=== PATIENT | female | born 2000 | race Hispanic/Latino ===

== ENCOUNTER 2019-09-13 19:31 | Emergency (ER) | payer OTHER ==
[2019-09-13 20:08] LABS: APPEARANCE,URINE Clear (CLEAR); BILIRUBIN,URINE Negative (NEGATIVE); COLOR,URINE Yellow (YELLOW); GLUCOSE, URINE (UA) Negative (NEGATIVE); KETONES,URINE Trace mg/dL (NEGATIVE); LEUKOCYTE ESTERASE ,URINE Small (NEGATIVE); NITRATE,URINE Positive (NEGATIVE); OCCULT BLOOD,URINE Negative (NEGATIVE); PROTEIN,URINE Negative (NEGATIVE)
[2019-09-13 20:12] LABS: HCG,QUAL RESULT POSITIVE (NEGATIVE)
[2019-09-13 20:16] LABS: RBC,URINE 0-1 /HPF (0-1)
[2019-09-13 20:17] LABS: BACTERIA,URINE Moderate /HPF (None Seen)
[2019-09-13 20:19] LABS: SQUAMOUS EPITHELIAL CELL,UR Few /HPF (0-2)
[2019-09-13 20:20] LABS: MUCUS,URINE Few LPF (None Seen)
[2019-09-13 21:04] LABS: BASOPHILS % (AUTO) 0.6 % (0.0-5.0); EOSINOPHILS % (AUTO) 1.5 % (0.0-8.0); HEMATOCRIT 38.9 % (36-48); LYMPHOCYTES % (AUTO) 18.3 % (21.0-51.0); MEAN CORPUSCULAR HGB CONC 33.2 g/dL (32.0-36.0); MEAN CORPUSCULAR VOLUME 87.4 fL (80-100); MONOCYTES % (AUTO) 5.5 % (3.0-13.0); NEUTROPHILS % (AUTO) 73.9 % (40.0-77.0); PLATELET COUNT (AUTO) 357 K/uL (130-400); RED BLOOD CELL COUNT(AUTO) 4.45 MIL/uL (4.00-5.50); RED CELL DISTRIBUTION WIDTH 12.8 % (11.0-15.5); WHITE BLOOD COUNT (AUTO) 11.2 K/uL (4.8-10.8)
[2019-09-13 21:23] LABS: CREATININE 0.6 mg/dL (0.5-1.5); POTASSIUM 3.7 mmol/L (3.5-5.1)
[2019-09-13 21:34] LABS: BILIRUBIN,TOTAL 0.2 mg/dL (0.2-1.0); TOTAL PROTEIN, SERUM 7.7 g/dL (6.0-8.3)
[2019-09-13] MEDS ORDERED: LIDOCAINE HCL-MPF 1% 2ML VIAL ONE (22:08)
[2019-09-13] MEDS ORDERED: CEFTRIAXONE SODIUM 1 GM ONE (22:09)
== END 2019-09-13 22:46 ==
LOC: EDH 19:31
DX: O23.41 Unspecified infection of urinary tract in pregnancy, first trimester (principal); Z3A.01 Less than 8 weeks gestation of pregnancy
CPT/HCPCS: 36415; 76801; 80053; 81001; 81025; 84702; 85025; 87077; 87088; 87186; 96372; 99284; J0696; J3490

== ENCOUNTER 2019-09-14 03:23 | Emergency (ER) | payer OTHER ==
[2019-09-14 04:22] LABS: AMPHET/METH SCREEN,URINE NEGATIVE (NEGATIVE); BARBITURATE SCREEN, URINE NEGATIVE (NEGATIVE); BENZODIAZEPINES SCREEN,URINE POSITIVE (NEGATIVE); CANNABINOID SCREEN,URINE NEGATIVE (NEGATIVE); COCAINE SCREEN,URINE NEGATIVE (NEGATIVE); OPIATE SCREEN,URINE NEGATIVE (NEGATIVE); PHENCYCLIDINE SCREEN,URINE NEGATIVE (NEGATIVE)
== END 2019-09-14 04:47 | disposition home or self-care (01) ==
LOC: EDH 03:23
DX: N39.0 Urinary tract infection, site not specified (principal); F13.10 Sedative, hypnotic or anxiolytic abuse, uncomplicated; Z33.1 Pregnant state, incidental; Z72.0 Tobacco use
CPT/HCPCS: 80305

== ENCOUNTER 2020-02-21 12:54 | Observation (INO) | payer MEDICAID ==
[~2020-02-21] VITALS: Ht 149.9 cm; Wt 47.6 kg
[2020-02-21 13:43] LABS: BILIRUBIN,URINE Negative (NEGATIVE); COLOR,URINE Yellow (YELLOW); GLUCOSE, URINE (UA) Negative (NEGATIVE); KETONES,URINE Negative (NEGATIVE); LEUKOCYTE ESTERASE ,URINE Large (NEGATIVE); NITRATE,URINE Negative (NEGATIVE); OCCULT BLOOD,URINE Large (NEGATIVE); PH,URINE 7.5 (5.0-8.0); PROTEIN,URINE Negative (NEGATIVE)
[2020-02-21 13:48] LABS: APPEARANCE,URINE SLIGHTLY CLOUDY (CLEAR)
[2020-02-21 13:50] LABS: AMPHET/METH SCREEN,URINE NEGATIVE (NEGATIVE); BARBITURATE SCREEN, URINE NEGATIVE (NEGATIVE); BENZODIAZEPINES SCREEN,URINE NEGATIVE (NEGATIVE); CANNABINOID SCREEN,URINE NEGATIVE (NEGATIVE); COCAINE SCREEN,URINE NEGATIVE (NEGATIVE); OPIATE SCREEN,URINE NEGATIVE (NEGATIVE); PHENCYCLIDINE SCREEN,URINE NEGATIVE (NEGATIVE)
[2020-02-21 14:03] LABS: BACTERIA,URINE Few /HPF (None Seen)
== END 2020-02-21 14:20 | disposition home or self-care (01) ==
LOC: EDH 12:54 → LDH 12:55
PROVIDERS: ADMIT Obstetrics & Gynecology; ATTEND Obstetrics & Gynecology
DX: O46.92 Antepartum hemorrhage, unspecified, second trimester (principal); Z3A.27 27 weeks gestation of pregnancy
CPT/HCPCS: 80305; 81001; 87088; 99284; G0378

== ENCOUNTER 2025-02-10 20:29 | Emergency (ER) | payer SELFPAY ==
[~2025-02-10] VITALS: Ht 152.4 cm; Wt 51.3 kg
[2025-02-10 20:52] LABS: APPEARANCE,URINE CLEAR (CLEAR); GLUCOSE, URINE (UA) NEGATIVE (NEGATIVE); LEUKOCYTE ESTERASE ,URINE 75 Leu/uL (NEGATIVE); NITRATE,URINE NEGATIVE (NEGATIVE); OCCULT BLOOD,URINE NEGATIVE (NEGATIVE)
[2025-02-10 20:56] LABS: ADD UA MICROSCOPIC YES
[2025-02-10 20:57] LABS: SQUAMOUS EPITHELIAL CELL,UR RARE /HPF (0-2)
[2025-02-10 21:06] LABS: IMMATURE GRANULOCYTE ABSOLUTE 0.03 K/uL (0-1); NUCLEATED RED BLOOD CELLS 0.0 % (0.0-0.19); PLATELET COUNT (AUTO) 455 K/uL (130-400); RED BLOOD CELL COUNT(AUTO) 4.38 MIL/uL (4.00-5.50); RED CELL DISTRIBUTION WIDTH 12.7 % (11.0-15.5); WHITE BLOOD COUNT (AUTO) 10.8 K/uL (4.8-10.8)
[2025-02-10 21:14] LABS: CREATININE 0.4 mg/dL (0.5-1.0); GLOMERULAR FILTR. RATE CALC 140.0 mL/min (>90); GLUCOSE,RANDOM 97.0 mg/dL (70-105); SODIUM SERUM 139.0 mmol/L (136-145); UREA NITROGEN, BLOOD 8.0 mg/dL (7-18)
[2025-02-10 21:32] VITALS: BP 127/74; PULSE 106; RESP 20; TEMP 98; O2SAT 98
[2025-02-10 21:44] LABS: HCG,QUANTITATIVE 7828.0 mIU/mL (0-5)
--- NOTE | 2025-02-10 22:02 | ERN ---
ED Note History of Present Illness Stated Complaint: C/O POSSIBLE Chief Complaint: Abdominal Pain Time Seen by MD: 20:34 Time Seen by Midlevel: 20:36 Dictation: 24-year-old female with no past medical history coming in with complaints of possible and lower abdominal pain. Patient states she checked at a home test today and was positive so decided to come to the emergency room to make sure. Patient denies any vaginal bleeding vaginal discharge. However is complaining of lower abdominal pain. Denies any fever, nausea or vomiting. Allergies: Coded Allergies: No Known Drug Allergies (Unverified Allergy, Unknown, 09/13/19) Past Medical History Past Medical History: No Pertinent History Surgical History: None LMP: Jan 10, 2025 Review of System Dictation Constitutional: Negative for fever,chills, and weight loss Eyes: Negative for injury, pain,redness, and discharge ENT: Negative for injury,pain or swelling Cardiovascular: Negative for chest pain, palpitations, and edema Respiratory: Negative for shortness of breath, cough, and wheezing, Abdomen/GI: Lower abdominal pain, no nausea, no vomiting,no diarrhea, and no constipation Back: Negative for injury and pain : Negative for injury, bleeding and discharge MS/Extremity: Negative for injury and deformity Skin: Negative for rash, and discoloration Neuro: Negative for headache, weakness, numbness, tingling, and seizure Psych: Negative for suicide ideation, homicidal ideation, and hallucinations Review of Systems: was completed Initial Vital Sign VS Vital Signs Date Time Temp Pulse Resp B/P (MAP) Pulse Ox O2 Delivery O2 Flow Rate FiO2 02/10/25 20:32 98.1 106 20 127/74 98 Room Air 02/10/25 21:32 0 21 Physical Exam Dictation General: awake, alert, NAD Head/Face: Normocephalic, atraumatic Eyes: PERRL, EOMI, vision at baseline ENT: oral cavity clear, TMs clear, no signs of infection Neck: Trachea midline, supple, no nuchal rigidity Cardiovascular: RRR, normal S1/S2, No MRGs, no JVD Respiratory: CTAB, no respiratory distress, No rales or wheezes Abdomen: Soft, non-tender, non-distended, normal bowel sounds, no guarding or rebound. Skin: Warm, dry, normal turgor, no rash MS/Extremity: Pulses equal, no cyanosis, neurovascular intact, FROM Neuro: COAx4, GCS 15, strength 5/5, CN 2-12 intact, normal cerebellar exam, normal gait, Psych: Normal behavior, mood, and affect normal Results (Laboratory/Radiology) Laboratory/Radiology Laboratory Tests Test 02/10/25 20:39 02/10/25 21:00 Urine Color LIGHT-YELLOW (YELLOW) Urine Appearance CLEAR (CLEAR) Urine pH 6.0 (5.0-8.0) Urine Specific Cades 1.013 (1.001-1.031) Urine Protein NEGATIVE mg/dL (NEGATIVE) Urine Glucose (UA) NEGATIVE mg/dL (NEGATIVE) Urine Ketones NEGATIVE mg/dL (NEGATIVE) Urine Occult Blood NEGATIVE (NEGATIVE) Urine Nitrate NEGATIVE (NEGATIVE) Urine Bilirubin NEGATIVE mg/dL (NEGATIVE) Urine Urobilinogen 0.2 mg/dL (0.2-1.0) Urine Leukocyte Esterase 75 Ajit/uL (NEGATIVE) H Urine RBC 2-5 /HPF (0-1) H Urine WBC 2-5 /HPF (0-1) H Urine Squamous Epithelial Cells RARE /HPF (0-2) Urine Bacteria RARE /HPF (None Seen) White Blood Count 10.8 K/uL (4.8-10.8) Red Blood Count 4.38 MIL/uL (4.00-5.50) Hemoglobin 12.7 g/dL (12.0-16.0) Hematocrit 37.8 % (36-48) Mean Corpuscular Volume 86.3 fL (79-99) Mean Corpuscular Hemoglobin 29.0 pg (27.0-33.0) Mean Corpuscular Hemoglobin Concent 33.6 g/dL (32.0-36.0) Red Cell Distribution Width 12.7 % (11.0-15.5) Platelet Count 455 K/uL (130-400) H Mean Platelet Volume 9.5 fL (7.5-10.5) Immature Granulocyte % (Auto) 0.3 % (0-1) Neutrophils (%) (Auto) 69.0 % (40.0-77.0) Lymphocytes (%) (Auto) 19.1 % (21.0-51.0) L Monocytes (%) (Auto) 7.3 % (3.0-13.0) Eosinophils (%) (Auto) 3.5 % (0.0-8.0) Basophils (%) (Auto) 0.8 % (0.0-5.0) Neutrophils # (Auto) 7.4 K/uL (1.8-7.7) Lymphocytes # (Auto) 2.1 K/uL (1.0-4.8) Monocytes # (Auto) 0.8 K/uL (0.1-1.0) Eosinophils # (Auto) 0.38 K/uL (0.00-0.70) Basophils # (Auto) 0.09 K/uL (0.00-0.20) Absolute Immature Granulocyte (auto 0.03 K/uL (0-1) Nucleated Red Blood Cells 0.0 % (0.0-0.19) Sodium Level 139 mmol/L (136-145) Potassium Level 3.7 mmol/L (3.5-5.1) Chloride Level 103 mmol/L (101-111) Carbon Dioxide Level 26 mmol/L (21-32) Blood Urea Nitrogen 8 mg/dL (7-18) Creatinine 0.4 mg/dL (0.5-1.0) L Glomerular Filtration Rate Calc 140 mL/min (>90) Random Glucose 97 mg/dL (70-105) Total Calcium 9.5 mg/dL (8.5-10.1) Human Chorionic Gonadotropin, Quant 7828 mIU/mL (0-5) H Labs Reviewed?: Yes ED Course ED Course Orders Procedure Category Date Status Time Cbc With Differential LAB 02/10/25 Complete 20:45 Basic Metabolic Panel LAB 02/10/25 Complete 20:45 Hcg,Quantitative LAB 02/10/25 Complete 20:45 Urinalysis Profile LAB 02/10/25 Complete 20:45 Culture Urine JUNIOR 02/10/25 In Process 20:57 Us Ob <14 Weeks US 02/10/25 Logged 22:04 Vital Signs Date Time Temp Pulse Resp B/P (MAP) Pulse Ox O2 Delivery O2 Flow Rate FiO2 02/10/25 21:32 98.1 106 20 127/74 98 Room Air* 0 21 02/10/25 20:32 98.1 106 20 127/74 98 Room Air Medical Decision Making MDM MDM: 24-year-old female with no past medical history coming in with complaints o f possible and lower abdominal pain. Patient states she checked at a home test today and was positive so decided to come to the emergency room to make sure. Patient denies any vaginal bleeding vaginal discharge. However is complaining of lower abdominal pain. Denies any fever, nausea or vomiting.CBC shows a leukocytosis, no anemia, no thrombocytopenia. Chemistries unremarkable. HCG quantitative is 7828. UA shows no evidence of urinary tract infection. Ultrasound has been ordered due to patient complaining of abdominal pain. Patient refused to have the ultrasound done in wants to leave against medical advice. Primary nurse and myself spoke to patient regarding leaving medical advice and possible complications including if she leaves. Patient accepted responsibility voiced understanding in his willing to sign the against medical advice. Educated on signs and symptoms of when to return back to the emergency room. Differential diagnosis: Stepdaughter , early , urinary tract infection Rationale: Tests considered and ordered secondary to shared decision making include: Previous outside records reviewed: Old ER visits. Risk of complication and/or morbidity or mortality of patient management: None Medications-Per medication reconciliation Need for hospitalization: Patient does not meet criteria for hospitalization. Need for emergency major/minor surgery: No There are no social concerns with this patient. Prescription drug management Prescriptions will include symptomatic care Patient's prior external medical records from other ER visits were reviewed by me as indicated. Prior testing and results from previous visits were reviewed. Prior tests were taken into account with medical decision making and resource utilization, independent historian/historians were used to obtain complete medical history. I independently interpreted the test that were performed, results were reviewed by me and considered findings on radiology if ordered. Medical management and examination interpretation discussions were had by me with other qualified healthcare professionals as indicated for the patient's care. DX & DISP Disposition: Discharge Departure Impression: Primary Impression: Condition: Stable Additional Instructions: You need to follow up with the OBGYN. If you develop any severe abdominal pain, nausea and vomiting, vaginal bleeding return to the emergency room. Referrals: SELF,REFERRAL (PCP) Time of Disposition: 22:45 I have reviewed the case, and I agree with, Diagnosis and Plan WILY SEVILLA Feb 10, 2025 22:02
--- NOTE | 2025-02-10 22:43 | NUR ---
PATIENT DECIDED TO LEAVE AGAINST MEDICAL ADVICE. NURSE PRACTITIONER WILY EXPLAINED TO THE PATIENT THE RISKS ASSOCIATED WITH LEAVING INCLUDING ECTOPIC AND . PATIENT VERBALIZED UNDERSTANDING OF THIS RISK AND DECIDED TO LEAVE ANYWAY. PATIENT SIGNED AGAINST MEDICAL ADVICE FORM. FORM PLACED IN PATIENT'S CHART.
== END 2025-02-10 22:45 | disposition left against medical advice (07) ==
LOC: EDH 20:29
DX: O26.899 Other specified pregnancy related conditions, unspecified trimester (principal); R10.30 Lower abdominal pain, unspecified; R10.20 Pelvic and perineal pain unspecified side; Z3A.00 Weeks of gestation of pregnancy not specified
CPT/HCPCS: 36415; 80048; 81001; 84702; 85025; 87086; 99283